=== PATIENT | male | born 1980 | race Caucasian/White ===

== ENCOUNTER 2018-12-23 21:15 | Emergency (ER) | payer SELFPAY ==
[~2018-12-23] VITALS: Ht 170.2 cm; Wt 113.6 kg
[2018-12-23 21:17] VITALS: TEMP 98.2
[2018-12-23 22:38] VITALS: BP 146/87; PULSE 98
[2018-12-23] MEDS ORDERED: PERCOCET 325 MG1 TA3 PO (22:43)
== END 2018-12-23 22:39 | disposition home or self-care (01) ==
LOC: COL.ER 21:15
DX: S22.42XA Multiple fractures of ribs, left side, initial encounter for closed fracture (principal); I10 Essential (primary) hypertension; W19.XXXA Unspecified fall, initial encounter; Y92.830 Public park as the place of occurrence of the external cause; Y93.23 Activity, snow (alpine) (downhill) skiing, snowboarding, sledding, tobogganing and snow tubing
CPT/HCPCS: A9284

== ENCOUNTER 2024-06-30 16:32 | Emergency (ER) | payer OTHER ==
[~2024-06-30] VITALS: Ht 172.7 cm; Wt 115.9 kg
[~2024-06-30 16:32] MED LIST: PERCOCET 325 MG1 TA3 PO
[2024-06-30 16:41] VITALS: TEMP 98.3
[2024-06-30 18:10] VITALS: BP 138/86; PULSE 92
== END 2024-06-30 18:10 | disposition home or self-care (01) ==
LOC: COL.ER 16:32
DX: S61.211A Laceration without foreign body of left index finger without damage to nail, initial encounter (principal); F17.290 Nicotine dependence, other tobacco product, uncomplicated; W26.0XXA Contact with knife, initial encounter; Y99.0 Civilian activity done for income or pay